=== PATIENT | male | born 1980 | race Caucasian/White ===

== ENCOUNTER → 2019-12-27 | Day surgery (SDC) | payer BC ==
[~2019-12-27] MED LIST: Barium Sulfate Oral Susp 450 ML Bottle PO ONE; Iopamidol 755 Mg/ML 100 ML Bottle IVPUSH ONE; Ketamine 200 MG/20 ML MDV IV ONE; Lactated Ringers 1,000 ML IV SCH; Propofol 200 MG/20 ML SDV IV ONE; fentaNYL 100 MCG/2 ML SDV IV ONE
--- NOTE | 2019-12-30 08:47 | OR ---
DATE OF OPERATION: 12/27/2019 PREOPERATIVE DIAGNOSIS: NAUSEA WITH EPIGASTRIC PAIN. POSTOPERATIVE DIAGNOSIS: NAUSEA WITH EPIGASTRIC PAIN. SURGEON: Marcos De La Torre MD PROCEDURE: FULL-LENGTH EGD WITH BIOPSIES X2, ZURDO. ANESTHESIA: MAC. COMPLICATIONS: None. SPECIMEN: 1. Antral biopsy x2. 2. Antral ZURDO. FINDINGS: 1. Full-length EGD. 2. Mild chronic antral gastritis. RECOMMENDATIONS: Medical followup in my office. INDICATIONS: The patient has been having on and off again nausea for months. He has been having some occasional epigastric pain. He does use anti- inflammatories regularly. We elected to proceed with an EGD. DESCRIPTION OF PROCEDURE: The patient was prepped and draped, placed in the left lateral decubitus position. A lubricated Olympus gastroscope was inserted and with ease intubated into the esophagus. Esophageal lining was benign in its entire course. The Z-line was crisp at 40 cm. There was no distal esophagitis, stricturing, ulceration, or spontaneous GERD. No hernia seen. The scope was advanced into the stomach, through the pylorus, and into the second portion of the duodenum. This and the duodenal bulb were completely benign. The scope was brought back into the stomach and retroflexed. The upper fundus and cardia were unremarkable. Straightening of the scope allowed full visualization of the rest of the fundus and antrum. There may have been some very mild chronic antral gastritis present. We did do 2 biopsies along with a ZURDO. No other polyps, lesions, ulcerations were seen. Air was then suctioned, scope removed without complication. JOHNNIE/HARSH /[id number]
== END ==
LOC: CC.SDS 10:34
PROVIDERS: ATTEND Family Medicine
DX: K29.50 Unspecified chronic gastritis without bleeding (principal); J45.909 Unspecified asthma, uncomplicated; K21.9 Gastro-esophageal reflux disease without esophagitis; K42.9 Umbilical hernia without obstruction or gangrene; Z01.812 Encounter for preprocedural laboratory examination; Z20.828 Contact with and (suspected) exposure to other viral communicable diseases
CPT/HCPCS: 00731; 74177; 87081; J2704; J3010; J7120; Q9967; U0002

== ENCOUNTER → 2021-01-14 | Day surgery (SDC) | payer BC ==
[~2021-01-14] MED LIST changes: +Albuterol/Ipratropium 3.0-0.5 MG/3 ML Neb Soln NEB ONE; +Albuterol/Ipratropium 3.0-0.5 MG/3 ML Neb Soln ONE; -Barium Sulfate Oral Susp 450 ML Bottle PO ONE; +Dexamethasone 4 MG/ML SDV ONE; +Flumazenil 0.1 MG/ML 5 ML MDV ONE; +HYDROmorphone 1 MG/ML Syringe ONE; -Iopamidol 755 Mg/ML 100 ML Bottle IVPUSH ONE; -Ketamine 200 MG/20 ML MDV IV ONE; +Ketamine 200 MG/20 ML MDV ONE; +Lidocaine 1% 30 ML SDV ONE; +Midazolam 1 MG/ML 2 ML SDV ONE; +Morphine 4 MG/ML VIAL IV PRN; +Naloxone 2 MG/2 ML Syringe ONE; +Ondansetron 4 MG/2 ML SDV IVPUSH PRN; +Ondansetron 4 MG/2 ML SDV ONE; -Propofol 200 MG/20 ML SDV IV ONE; +Propofol 200 MG/20 ML SDV ONE; -fentaNYL 100 MCG/2 ML SDV IV ONE; +fentaNYL 100 MCG/2 ML SDV ONE; +methylPREDNISolone Sodium Succinate 125 MG/2 ML SDV ONE
--- NOTE | 2021-01-14 12:14 | OR ---
DATE OF OPERATION: 01/14/2021 PREOPERATIVE DIAGNOSIS: EXTERNAL HEMORRHOID. POSTOPERATIVE DIAGNOSIS: EXTERNAL HEMORRHOID. SURGEON: Bubba Huddleston MD PROCEDURE: EXCISION OF EXTERNAL SKIN TAG AND HEMORRHOID. ANESTHESIA: General. ESTIMATED BLOOD LOSS: Minimum. SPECIMEN: Hemorrhoid. INDICATIONS: This 40-year-old male has had trouble with hemorrhoids for quite some time. He has by physical examination, a large external skin tag. He also has some pain on defecation. No usual rectal bleeding, however. DESCRIPTION OF PROCEDURE: After adequate preparation, an anoscope was placed in the anal canal and the hemorrhoid examined. This seemed like just a hard keratinized or scarred external hemorrhoid that communicated with one down into the anal canal. Cautery was used to excise the skin in the hemorrhoid and then the wound was closed using a running locking 2-0 Vicryl suture. Two other interrupted [id number] sutures were used to control hemostasis. There were no other significant hemorrhoids present. Posteriorly along the anal canal, he does have a mild erythematous fissure, but it extends above the internal sphincter, and I chose not to do lateral internal sphincterotomy, which I had discussed with him preoperatively. I do not think his fissure is significant enough to warrant a sphincterotomy. No other abnormalities were noted. The patient was taken to recovery room. RAMÓN/HARSH /[id number]
[2021-01-14] MEDS: Acetaminophen/oxyCODONE 325-5 MG Tab PO PRN ×2 (17:16→22:24)
[2021-01-15] MEDS: Acetaminophen/oxyCODONE 325-5 MG Tab PO PRN ×2 (03:45→07:49)
--- NOTE | 2021-01-15 07:21 | PCM.SN.2 ---
- Free Text/Narrative Note: Stable POD#1. PO liquids tolerated. Voided without have to straight cath. Pain controlled this AM. Ambulation well. No bleeding. Can didscharge today. Percoet #20 given for pain. No restrictions. FU my clinic if needed. Time Documentation
== END | disposition home or self-care (01) ==
LOC: CC.SDS 08:45
PROVIDERS: ATTEND Surgery
DX: K64.4 Residual hemorrhoidal skin tags (principal); K60.2 Anal fissure, unspecified; J45.909 Unspecified asthma, uncomplicated; K21.9 Gastro-esophageal reflux disease without esophagitis; Z79.899 Other long term (current) drug therapy; Z98.890 Other specified postprocedural states
CPT/HCPCS: 46999; A9270; J1100; J1170; J2250; J2310; J2405; J2704; J2930; J3010; J3490; J7120; 00902; J7620-GY

== ENCOUNTER → 2021-03-26 | Day surgery (SDC) | payer BC ==
[~2021-03-26] MED LIST changes: -Albuterol/Ipratropium 3.0-0.5 MG/3 ML Neb Soln NEB ONE; -Albuterol/Ipratropium 3.0-0.5 MG/3 ML Neb Soln ONE; -Dexamethasone 4 MG/ML SDV ONE; -Flumazenil 0.1 MG/ML 5 ML MDV ONE; -HYDROmorphone 1 MG/ML Syringe ONE; -Lidocaine 1% 30 ML SDV ONE; -Midazolam 1 MG/ML 2 ML SDV ONE; -Morphine 4 MG/ML VIAL IV PRN; -Naloxone 2 MG/2 ML Syringe ONE; -Ondansetron 4 MG/2 ML SDV IVPUSH PRN; -Ondansetron 4 MG/2 ML SDV ONE; -methylPREDNISolone Sodium Succinate 125 MG/2 ML SDV ONE
--- NOTE | 2021-03-26 14:06 | OR ---
DATE OF OPERATION: 03/26/2021 PREOPERATIVE DIAGNOSIS: CHRONIC DIARRHEA. POSTOPERATIVE DIAGNOSIS: CHRONIC DIARRHEA. SURGEON: Marcos De La Torre MD PROCEDURE: FULL-LENGTH DIAGNOSTIC COLONOSCOPY WITH RANDOM BIOPSIES X4. ANESTHESIA: MAC. COMPLICATIONS: None. SPECIMEN: Random colon biopsies from terminal ileum to sigmoid. FINDINGS: 1. Full-length diagnostic colonoscopy. 2. Normal exam without any obvious signs of colitis. RECOMMENDATIONS: Followup pending pathology reports. Routine colonoscopy every 10 years. INDICATIONS: Mr. Vivas suffers from chronic and persistent diarrhea and some irritable bowel symptoms. He has never had a full diagnostic colonoscopy and we felt he would be a candidate to rule out colitis. DESCRIPTION OF PROCEDURE: The patient was prepped and draped, placed in the left lateral decubitus position. A lubricated Olympus colonoscope was inserted and with ease, advanced to the cecum. Direct visualization of ileocecal valve and appendiceal orifice was accomplished. The bowel prep was adequate. Upon withdrawal, the cecum appeared benign. We intubated into the terminal ileum without difficulty and did a random biopsy. It appeared normal as well. The ascending, transverse, and descending colons were completely benign. We did do a random biopsy at the ascending and transverse area. The descending colon was unremarkable throughout the sigmoid and rectosigmoid region. There were no polyps, masses, ulceration, or bleeding sites. No vascular abnormalities or signs of colitis. No diverticula. Another random biopsy was taken. The rectal vault was unremarkable. Retroflexion showed no perianal lesions. Air was suctioned. Scope removed without complication. JOHNNIE/HARSH /[id number]
== END ==
LOC: CC.SDS 11:14
PROVIDERS: ATTEND Family Medicine
DX: K52.9 Noninfective gastroenteritis and colitis, unspecified (principal); K58.9 Irritable bowel syndrome, unspecified; J45.909 Unspecified asthma, uncomplicated; K21.9 Gastro-esophageal reflux disease without esophagitis; K42.9 Umbilical hernia without obstruction or gangrene; Z79.899 Other long term (current) drug therapy
CPT/HCPCS: 00811; J2704; J3010; J7120